=== PATIENT | male | born 1980 | race Caucasian/White ===

== ENCOUNTER 2018-03-22 23:12 | Emergency (ER) | payer MEDICAID ==
[~2018-03-22] VITALS: Ht 185.4 cm; Wt 79.4 kg
[2018-03-22 23:20] VITALS: BP 138/96
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
[2018-03-23 00:50] VITALS: BP 134/89
== END 2018-03-23 00:50 | disposition home or self-care (01) ==
LOC: EMR 23:55
DX: M54.2 Cervicalgia (principal); M25.562 Pain in left knee; V43.62XA Car passenger injured in collision with other type car in traffic accident, initial encounter; Y92.410 Unspecified street and highway as the place of occurrence of the external cause
CPT/HCPCS: 99283